=== PATIENT | male | born 1970 | race Caucasian/White ===

== ENCOUNTER 2021-10-21 14:49 | Outpatient (CLI) | payer OTHER, SELFPAY ==
[2021-10-21 15:47] VITALS: BP 124/75; PULSE 85; RESP 16
--- NOTE | 2021-10-21 16:59 | PM.ST ---
Stress Test Note Date Date Seen: 10/21/21 Date of test: 10/21/21 Providers Primary care provider: Blake Chung Stress test physician: Kevin Gonzalez Stress Test Note Stress test ordered: Stress Echo Indication for test: chest pain Results discussion: 51-year-old gentleman presents for stress echo outpatient cardiac stress test medical history form is reviewed, risks benefits and side effects discussed in detail. Pretest EKG shows normal sinus rhythm, with a ventricular rate of 85 and a blood pressure 130/[address] wave changes are noted. Following standard [facility] protocol patient is exercised for a total time of 12 minutes. Condition was felt to be excellent his maximum heart rate was 157, which is 110% of the target. No significant chest pain shortness of breath or any other anginal equivalents occurred, there is no ST wave changes suggestive of ischemia. There is no dysrhythmias Impression: Negative electrographic portion of stress echo Follow up suggested: Follow-up with primary care suggested for cardiology read of the echo, patient left this testing facility in excellent condition.
== END 2021-10-21 14:50 | disposition home or self-care (01) ==
PROVIDERS: PCP Family Medicine; Visit Provider Family Medicine
DX: R07.89 Other chest pain (principal)
CPT/HCPCS: 93016; 93325; 93351

== ENCOUNTER 2021-12-17 13:49 | Outpatient (CLI) | payer OTHER, SELFPAY ==
[2021-12-17 13:17] LABS: Chloride* 102 mmol/L (96-114)
[2021-12-17 13:18] LABS: Potassium* 4.2 mmol/L (3.6-5.1); Sodium* 138 mmol/L (135-149)
[2021-12-17 13:20] LABS: Cholesterol* 176 mg/dL (90-199)
[2021-12-17 13:21] LABS: Blood Urea Nitrogen* 16 mg/dL (7-30); Calcium* 9.3 mg/dL (8.4-10.6); Carbon Dioxide* 30 mmol/L (20-32); Creatinine* 0.8 mg/dL (0.5-1.5); Estimated Glomerular Filt Rate 106 ml/min; Glucose* 101 mg/dL (60-115); HDL Cholesterol* 72 mg/dL (>=40); LDL Cholesterol Calculated 91 mg/dL (<100); Triglycerides* 64 mg/dL (40-149)
[2021-12-17 13:43] LABS: PSA Screen* 1.35 ng/mL (0.10-4.00)
== END 2021-12-17 13:50 | disposition home or self-care (01) ==
PROVIDERS: PCP Family Medicine; Visit Provider Family Medicine
DX: Z00.00 Encounter for general adult medical examination without abnormal findings (principal); Z13.6 Encounter for screening for cardiovascular disorders; Z12.5 Encounter for screening for malignant neoplasm of prostate
CPT/HCPCS: 80048; 80061; 84153

== ENCOUNTER 2022-01-01 14:52 | Outpatient (CLI) | payer OTHER, SELFPAY | END 2022-01-01 14:53 | disposition home or self-care (01) | LOC: RAD 14:52 | PROVIDERS: PCP Family Medicine; Visit Provider Family Medicine | DX: R07.9 Chest pain, unspecified (principal); I35.1 Nonrheumatic aortic (valve) insufficiency; I34.0 Nonrheumatic mitral (valve) insufficiency; R00.2 Palpitations | CPT/HCPCS: 93306 ==

== ENCOUNTER 2022-03-19 07:30 | Outpatient (RCR) | payer OTHER, SELFPAY | END 2022-03-19 09:30 | disposition home or self-care (01) | PROVIDERS: PCP Family Medicine; Visit Provider Family Medicine | DX: M54.2 Cervicalgia (principal); Z51.89 Encounter for other specified aftercare | CPT/HCPCS: 97110; 97140; 97162 ==

== ENCOUNTER 2022-12-21 08:38 | Outpatient (CLI) | payer OTHER, SELFPAY | END 2022-12-21 08:39 | disposition home or self-care (01) | LOC: NFLDREF 12-23 11:01 | PROVIDERS: PCP Family Medicine; Referring Provider Family Medicine; Visit Provider Family Medicine | DX: Z00.00 Encounter for general adult medical examination without abnormal findings (principal); Z12.5 Encounter for screening for malignant neoplasm of prostate; Z13.6 Encounter for screening for cardiovascular disorders | CPT/HCPCS: 80048; 80061; 84153 ==

== ENCOUNTER 2023-07-23 09:25 | Outpatient (CLI) | payer OTHER, SELFPAY | END 2023-07-23 09:26 | disposition home or self-care (01) | LOC: NFLDREF 07-26 05:24 | PROVIDERS: PCP Family Medicine; Referring Provider Family Medicine; Visit Provider Family Medicine | DX: I10 Essential (primary) hypertension (principal) | CPT/HCPCS: 80048 ==

== ENCOUNTER 2023-12-23 08:05 | Outpatient (CLI) | payer OTHER, SELFPAY | END 2023-12-23 08:06 | disposition home or self-care (01) | LOC: NFLDREF 12-24 09:41 | PROVIDERS: PCP Family Medicine; Referring Provider Family Medicine; Visit Provider Family Medicine | DX: Z00.00 Encounter for general adult medical examination without abnormal findings (principal); I10 Essential (primary) hypertension; Z12.5 Encounter for screening for malignant neoplasm of prostate; Z13.6 Encounter for screening for cardiovascular disorders | CPT/HCPCS: 80053; 80061; G0103 ==

== ENCOUNTER 2024-01-14 09:00 | Outpatient (RCR) | payer OTHER, SELFPAY | END 2024-05-13 23:59 | disposition home or self-care (01) | PROVIDERS: PCP Family Medicine; Visit Provider Family Medicine | DX: M25.519 Pain in unspecified shoulder (principal); M25.569 Pain in unspecified knee; M54.2 Cervicalgia; M54.9 Dorsalgia, unspecified; Z51.89 Encounter for other specified aftercare | CPT/HCPCS: 97032; 97110; 97140; 97161; 97535 ==